=== PATIENT | female | born 1965 | race Two or more races ===

== ENCOUNTER → 2018-02-14 | Outpatient (CLI) | payer OTHER ==
[~2018-02-14] MED LIST: IBUPROFEN800 MG PO; MEDROL4 MG PO; ORPH100T PO
== END | disposition home or self-care (01) ==
LOC: NUCLEAR 10:00
DX: M15.0 Primary generalized (osteo)arthritis (principal); M46.1 Sacroiliitis, not elsewhere classified; M06.4 Inflammatory polyarthropathy
CPT/HCPCS: 78306; A9503; 78315

== ENCOUNTER 2018-03-01 10:08 | Outpatient (CLI) | payer OTHER | END 2018-03-01 10:18 | disposition home or self-care (01) | LOC: RAD 10:08 | DX: M15.8 Other polyosteoarthritis (principal) ==

== ENCOUNTER 2018-08-04 09:24 | Outpatient (CLI) | payer OTHER | END 2018-08-04 09:37 | disposition home or self-care (01) | LOC: MRI 09:24 | DX: G43.809 Other migraine, not intractable, without status migrainosus (principal) | CPT/HCPCS: 70553 ==

== ENCOUNTER 2018-10-13 08:41 | Outpatient (CLI) | payer OTHER | END 2018-10-13 08:54 | disposition home or self-care (01) | LOC: MAMO-SONO 08:41 | DX: N60.11 Diffuse cystic mastopathy of right breast (principal); N60.12 Diffuse cystic mastopathy of left breast; Z12.31 Encounter for screening mammogram for malignant neoplasm of breast ==

== ENCOUNTER 2019-12-13 17:01 | Outpatient (CLI) | payer OTHER | END 2019-12-13 18:00 | disposition home or self-care (01) | LOC: EDBD 17:01 → LAB 17:01 → RAD 17:01 | PROVIDERS: ATTEND Chiropractor | DX: M54.2 Cervicalgia (principal); M54.6 Pain in thoracic spine; M99.03 Segmental and somatic dysfunction of lumbar region; M99.04 Segmental and somatic dysfunction of sacral region; M99.07 Segmental and somatic dysfunction of upper extremity ==

== ENCOUNTER 2020-01-02 08:38 | Outpatient (CLI) | payer OTHER | END 2020-01-02 08:52 | disposition home or self-care (01) | LOC: EDBD 08:38 → RAD 08:38 → MAMO-SONO 09:00 | PROVIDERS: ATTEND General Practice | DX: R42 Dizziness and giddiness (principal); R51 Headache; H53.8 Other visual disturbances; Z12.31 Encounter for screening mammogram for malignant neoplasm of breast ==

== ENCOUNTER 2020-01-02 09:53 | Outpatient (CLI) | payer OTHER | END 2020-01-02 14:22 | disposition home or self-care (01) | LOC: EKG 09:53 | PROVIDERS: ATTEND General Practice | DX: Z13.6 Encounter for screening for cardiovascular disorders (principal); R42 Dizziness and giddiness; R51 Headache ==

== ENCOUNTER 2020-08-02 15:59 | Outpatient (CLI) | payer OTHER | END 2020-08-02 16:20 | disposition home or self-care (01) | LOC: RAD 15:59 | PROVIDERS: ATTEND Internal Medicine Rheumatology | DX: M54.2 Cervicalgia (principal); M15.8 Other polyosteoarthritis; M47.812 Spondylosis without myelopathy or radiculopathy, cervical region ==

== ENCOUNTER 2023-06-10 07:39 | Outpatient (CLI) | payer OTHER | END 2023-06-10 07:45 | disposition home or self-care (01) | LOC: RAD 07:39 | PROVIDERS: ATTEND Internal Medicine Endocrinology, Diabetes & Metabolism | DX: M19.19 Post-traumatic osteoarthritis, other specified site (principal); E11.65 Type 2 diabetes mellitus with hyperglycemia ==

== ENCOUNTER 2024-04-04 07:34 | Outpatient (CLI) | payer OTHER | END 2024-04-04 07:57 | disposition home or self-care (01) | LOC: MAMO-SONO 07:34 | PROVIDERS: ATTEND Obstetrics & Gynecology | DX: N60.11 Diffuse cystic mastopathy of right breast (principal); N60.12 Diffuse cystic mastopathy of left breast; S83.31XA Tear of articular cartilage of right knee, current, initial encounter | CPT/HCPCS: 73721 ==

== ENCOUNTER 2024-12-15 13:26 | Outpatient (CLI) | payer OTHER | END 2024-12-15 13:36 | disposition home or self-care (01) | LOC: RAD 13:26 | PROVIDERS: ATTEND Physical Medicine & Rehabilitation | DX: M54.2 Cervicalgia (principal) ==

== ENCOUNTER 2025-06-14 07:16 | Outpatient (CLI) | payer OTHER | END 2025-06-14 07:18 | disposition home or self-care (01) | LOC: SONOGRAMA 07:16 | PROVIDERS: ATTEND Physical Medicine & Rehabilitation | DX: M25.512 Pain in left shoulder (principal); M25.551 Pain in right hip ==